=== PATIENT | female | born 1930 | race African-American/Black ===

== ENCOUNTER 2017-07-15 01:39 | Inpatient (IN) | payer MEDICARE, MEDICAID ==
[~2017-07-15] VITALS: Ht 157.5 cm; Wt 60.8 kg
[2017-07-15] VITALS (46 sets, daily range): BP systolic 101–189; BP diastolic 51–103
[~2017-07-15 01:39] MED LIST: APIX2.5T PO; ATOR40TA70 PO; AZOPT EACHEYE; BRIM5DRO EACHEYE; BUSP5TAB3 PO; ESCI20TA36 PO; FLUT1DIS3 INH; KDUR10 PO; LOSA25TA12 PO; PALI6TAB3 PO; TRAV2.5D EACHEYE; VERA180T PO
[2017-07-15] MEDS ORDERED: ALBUTEROL (0.083%) 2.5MG/3ML NEB HHN STA (01:48)
[2017-07-15] MEDS ORDERED: IPRATROPIUM BROMIDE (0.02%) 0.5MG/2.5ML NEB HHN STA (01:48)
[2017-07-15] MEDS ORDERED: METHYLPREDNISOLONE SOD SUCC 125 MG/2 ML VIAL IV STA (01:48)
[2017-07-15] MEDS ORDERED: MAGNESIUM 2 G PREMIX 50 ML IV ONE (02:00)
[2017-07-15] MEDS ORDERED: ASPIRIN 81MG TABLET PO ONE (02:00)
[2017-07-15] MEDS ORDERED: LEVOFLOXACIN 750MG PREMIX 150 ML IV ONE (02:00)
[2017-07-15 02:21] LABS: BASOPHILS % 0.4 % (0.0-2.0); EOSINOPHILS % 1.3 % (0.0-5.0); HEMATOCRIT. 37.3 % (36.0-48.0); HEMOGLOBIN. 11.9 g/dL (12.0-16.0); LYMPHOCYTES % 24.6 % (20.0-50.0); MEAN CORPUSCULAR HEMOGLOBIN 28.9 pg (28.0-32.0); MEAN CORPUSCULAR VOLUME 90.6 fL (81.0-99.0); MONOCYTES % 4.8 % (2.0-8.0); NEUTROPHILS % 68.9 % (40.0-76.0); PLATELET 177 x1000/uL (130-400); RED BLOOD CELL COUNT 4.12 mill/uL (4.2-5.4); RED CELL DISTRIBUTION WIDTH 15.1 % (11.6-14.6)
[2017-07-15 02:23] LABS: CHLORIDE 103 mEq/L (98-107); INR 1.1; PROTHROMBIN TIME 11.2 sec (9.4-11.6)
[2017-07-15 02:27] LABS: ETHANOL BLOOD < 10 mg/dL
[2017-07-15 02:39] LABS: BG BASE EXCESS 0.5 mmol/L (-2.0-2.0); BG CARBOXYHEMOGLOBIN 0.2 % (0.5-1.5); BG DEOXYHEMOGLOBIN 8.2 % (0.0-5.0); BG FRACTION INSPIRED OXYGEN 100; BG HCO3 ACT 25.9 mmol/L (22.0-26.0); BG METHEMOGLOBIN 0.1 % (0.0-1.5); BG OXYGEN SATURATION 91.8 % (92.0-98.5); BG OXYHEMOGLOBIN 91.5 % (94.0-97.0); BG PCO2 44.7 mmHg (35.0-45.0); BG PH 7.381 (7.350-7.450); BG SAMPLE SITE RIGHT RADIAL; BG TOTAL HEMOGLOBIN 12.2 g/dL (12.0-18.0); BG VENT MODE MASK - NRB
[2017-07-15] MEDS ORDERED: VANCOMYCIN 1 G PREMIX 200 ML IV SCH (08:00)
[2017-07-15] MEDS ORDERED: PANTOPRAZOLE SODIUM 40 MG/VIAL IV SCH (09:00)
[2017-07-15] MEDS ORDERED: ONDANSETRON HCL 4MG/2ML VIAL IV PRN (10:00)
[2017-07-15] MEDS ORDERED: LIDOCAINE HCL/PF 1% 10 MG/ML 5ML VIAL ONE (10:23)
[2017-07-15] MEDS ORDERED: LORAZEPAM 2MG/ML CPJ IV PRN (10:45)
[2017-07-15] MEDS ORDERED: LORAZEPAM 2MG/ML CPJ IV SCH (10:45)
[2017-07-15] MEDS ORDERED: NOREPINEPHRINE 4 MG in DEXT 5% WATER 246 ML IV PRN (11:15)
[2017-07-15] MEDS: PIPERACILLIN/TAZ 3.375G PREMIX 50 ML IV SCH ×3 (11:16→22:13)
[2017-07-15] MEDS: DEXT 5%/0.45% NACL KCL 20MEQ/L 1,000 ML IV SCH ×2 (11:31→21:48)
[2017-07-15] MEDS ORDERED: VANCOMYCIN 1500MG in DEXTROSE 5% WATER 250ML IV SCH (12:00)
[2017-07-15] MEDS ORDERED: METOPROLOL TARTRATE 5MG/5ML VIAL IV PRN (12:45)
[2017-07-15 13:10] LABS: HEMATOCRIT. 31.4 % (36.0-48.0); HEMOGLOBIN. 10.4 g/dL (12.0-16.0); MEAN CORPUSCULAR VOLUME 90.8 fL (81.0-99.0); MEAN PLATELET VOLUME 11.5 fl (7.4-10.4); PLATELET 153 x1000/uL (130-400); RED BLOOD CELL COUNT 3.46 mill/uL (4.2-5.4); RED CELL DISTRIBUTION WIDTH 15.2 % (11.6-14.6)
[2017-07-15 13:36] LABS: PLATELET ESTIMATE NORMAL
[2017-07-15] MEDS: DORZOLAMIDE 2% OPHTH 10 ML BOTTLE BOTHEYE SCH ×2 (14:52→23:00)
[2017-07-15 16:16] LABS: TOTAL IRON BINDING CAPACITY 254 ug/dL (250-450)
[2017-07-15] MEDS: PANTOPRAZOLE 80 MG in SODIUM CHLORIDE 0.9% 100 ML IV SCH (17:11)
[2017-07-15] MEDS: DIGOXIN 500MCG/2ML AMP IV SCH (17:12)
[2017-07-15] MEDS ORDERED: CLONIDINE HCL 0.1MG/24HR PATCH TD SCH (18:45)
[2017-07-15 19:41] LABS: HEMATOCRIT. 26.8 % (36.0-48.0); HEMOGLOBIN. 8.7 g/dL (12.0-16.0); MEAN CORPUSCULAR HEMOGLOBIN 29.1 pg (28.0-32.0); MEAN CORPUSCULAR VOLUME 89.9 fL (81.0-99.0); MEAN PLATELET VOLUME 11.6 fl (7.4-10.4); PLATELET 144 x1000/uL (130-400); RED BLOOD CELL COUNT 2.98 mill/uL (4.2-5.4); RED CELL DISTRIBUTION WIDTH 14.9 % (11.6-14.6)
[2017-07-15 21:20] LABS: PLATELET ESTIMATE NORMAL
[2017-07-16] VITALS (33 sets, daily range): BP systolic 114–177; BP diastolic 51–120
[2017-07-16 00:45] LABS: BASOPHILS % 0.1 % (0.0-2.0); HEMATOCRIT. 28.9 % (36.0-48.0); HEMOGLOBIN. 9.6 g/dL (12.0-16.0); LYMPHOCYTES % 9.2 % (20.0-50.0); MEAN CORPUSCULAR HEMOGLOBIN 30.1 pg (28.0-32.0); MEAN CORPUSCULAR VOLUME 90.1 fL (81.0-99.0); MEAN PLATELET VOLUME 11.1 fl (7.4-10.4); MONOCYTES % 8.1 % (2.0-8.0); NEUTROPHILS % 82.6 % (40.0-76.0); PLATELET 122 x1000/uL (130-400); RED CELL DISTRIBUTION WIDTH 14.9 % (11.6-14.6)
[2017-07-16] MEDS: PANTOPRAZOLE 80 MG in SODIUM CHLORIDE 0.9% 100 ML IV SCH ×3 (02:00→21:25)
[2017-07-16] MEDS: PIPERACILLIN/TAZ 3.375G PREMIX 50 ML IV SCH ×4 (04:45→21:24)
[2017-07-16] MEDS: DEXT 5%/0.45% NACL KCL 20MEQ/L 1,000 ML IV SCH ×2 (06:10→18:19)
[2017-07-16 07:01] LABS: BASOPHILS % 0.1 % (0.0-2.0); HEMATOCRIT. 27.5 % (36.0-48.0); HEMOGLOBIN. 9.1 g/dL (12.0-16.0); LYMPHOCYTES % 8.3 % (20.0-50.0); MEAN CORPUSCULAR HEMOGLOBIN 29.9 pg (28.0-32.0); MEAN CORPUSCULAR VOLUME 90.6 fL (81.0-99.0); MEAN PLATELET VOLUME 11.4 fl (7.4-10.4); MONOCYTES % 7.9 % (2.0-8.0); NEUTROPHILS % 83.7 % (40.0-76.0); PLATELET 125 x1000/uL (130-400); RED BLOOD CELL COUNT 3.03 mill/uL (4.2-5.4); RED CELL DISTRIBUTION WIDTH 14.7 % (11.6-14.6)
[2017-07-16 07:43] LABS: BG BASE EXCESS -0.7 mmol/L (-2.0-2.0); BG CARBOXYHEMOGLOBIN 0.2 % (0.5-1.5); BG DEOXYHEMOGLOBIN 0.5 % (0.0-5.0); BG HCO3 ACT 23.2 mmol/L (22.0-26.0); BG METHEMOGLOBIN 0.5 % (0.0-1.5); BG OXYGEN SATURATION 99.5 % (92.0-98.5); BG OXYHEMOGLOBIN 98.8 % (94.0-97.0); BG PCO2 34.8 mmHg (35.0-45.0); BG PH 7.441 (7.350-7.450); BG PO2 320.6 mmHg (75.0-100.0); BG SAMPLE SITE RIGHT BRACHIAL; BG TOTAL HEMOGLOBIN 8.5 g/dL (12.0-18.0); BG VENT MODE MASK - NRB
[2017-07-16 07:48] LABS: CHLORIDE 107 mEq/L (98-107)
[2017-07-16 07:53] LABS: PHOSPHORUS 1.9 mg/dL (2.5-4.9)
[2017-07-16] MEDS: DORZOLAMIDE 2% OPHTH 10 ML BOTTLE BOTHEYE SCH ×2 (09:31→21:51)
[2017-07-16 10:15] LABS: CLARITY URINE CLEAR (CLEAR); COLOR URINE ORANGE (YELLOW); KETONES URINE NEGATIVE (NEGATIVE); LEUKOCYTE ESTERASE URINE 1+ (NEGATIVE); NITRITE URINE NEGATIVE (NEGATIVE); OCCULT BLOOD URINE 3+ (NEGATIVE); PROTEIN URINE 1+ (NEGATIVE); SPECIFIC GRAVITY URINE 1.022 (1.005-1.030); UROBILINOGEN URINE 0.2 E.U./dL (0.2-1.0)
[2017-07-16] MEDS: LOSARTAN POTASSIUM 25 MG TABLET NG SCH (11:40)
[2017-07-16] MEDS: AMIODARONE HCL 200 MG TABLET NG SCH ×2 (11:40→21:25)
[2017-07-16] MEDS: HYDRALAZINE HCL 25MG TABLET NG SCH ×2 (11:40→21:25)
[2017-07-16] MEDS: LAMOTRIGINE 100MG TABLET PO SCH ×2 (11:40→21:25)
[2017-07-16 12:32] LABS: BASOPHILS % 0.3 % (0.0-2.0); EOSINOPHILS % 0.3 % (0.0-5.0); HEMATOCRIT. 23.9 % (36.0-48.0); HEMOGLOBIN. 7.8 g/dL (12.0-16.0); LYMPHOCYTES % 10.1 % (20.0-50.0); MEAN CORPUSCULAR HEMOGLOBIN 29.3 pg (28.0-32.0); MEAN CORPUSCULAR VOLUME 89.3 fL (81.0-99.0); MEAN PLATELET VOLUME 11.6 fl (7.4-10.4); MONOCYTES % 7.7 % (2.0-8.0); NEUTROPHILS % 81.6 % (40.0-76.0); PLATELET 126 x1000/uL (130-400); RED BLOOD CELL COUNT 2.68 mill/uL (4.2-5.4); RED CELL DISTRIBUTION WIDTH 15.1 % (11.6-14.6)
[2017-07-16 12:38] LABS: BG CARBOXYHEMOGLOBIN 0.2 % (0.5-1.5); BG DEOXYHEMOGLOBIN 2.2 % (0.0-5.0); BG FRACTION INSPIRED OXYGEN 32; BG HCO3 ACT 25.8 mmol/L (22.0-26.0); BG OXYGEN SATURATION 97.8 % (92.0-98.5); BG OXYHEMOGLOBIN 95.6 % (94.0-97.0); BG PCO2 36.7 mmHg (35.0-45.0); BG PH 7.464 (7.350-7.450); BG PO2 147.5 mmHg (75.0-100.0); BG SAMPLE SITE RIGHT RADIAL; BG TOTAL HEMOGLOBIN 9.3 g/dL (12.0-18.0); BG VENT MODE NASAL CANNULA
[2017-07-16] MEDS: VANCOMYCIN 1250MG in DEXTROSE 5% WATER 250ML IV SCH (12:39)
[2017-07-16 13:11] LABS: *AMPHETAMINES SCREEN URINE NEGATIVE (NEGATIVE); *BARBITURATES SCREEN URINE NEGATIVE (NEGATIVE); *BENZODIAZEPINES SCREEN URINE NEGATIVE (NEGATIVE); METHADONE URINE SCREEN NEGATIVE (NEGATIVE); OPIATES URINE SCREEN NEGATIVE (NEGATIVE)
[2017-07-16 13:12] LABS: CANNABINOID URINE SCREEN NEGATIVE (NEGATIVE); PHENCYCLIDINE URINE SCREEN NEGATIVE (NEGATIVE)
[2017-07-16 13:13] LABS: *COCAINE SCREEN URINE NEGATIVE (NEGATIVE)
[2017-07-16] MEDS: SUCRALFATE 1 G/10 ML UDC GT SCH ×2 (14:55→21:25)
[2017-07-16] MEDS ORDERED: POTASSIUM PHOS,M-BASIC-D-BASIC 30 MMOL in DEXT 5% WATER 500 ML IV NR (16:00)
[2017-07-16] MEDS: DIGOXIN 500MCG/2ML AMP IV SCH (18:24)
[2017-07-16] MEDS ORDERED: PANTOPRAZOLE SODIUM 40 MG/VIAL IV ONE (21:17)
[2017-07-17] VITALS (61 sets, daily range): BP systolic 97–169; BP diastolic 41–86
[2017-07-17] MEDS: DEXT 5%/0.45% NACL KCL 20MEQ/L 1,000 ML IV SCH ×2 (04:38→11:59)
[2017-07-17] MEDS: PIPERACILLIN/TAZ 3.375G PREMIX 50 ML IV SCH ×4 (04:43→21:40)
[2017-07-17 05:26] LABS: BASOPHILS % 0.1 % (0.0-2.0); EOSINOPHILS % 0.7 % (0.0-5.0); HEMATOCRIT. 22.3 % (36.0-48.0); HEMOGLOBIN. 7.5 g/dL (12.0-16.0); LYMPHOCYTES % 17.1 % (20.0-50.0); MEAN CORPUSCULAR HEMOGLOBIN 30.3 pg (28.0-32.0); MEAN CORPUSCULAR VOLUME 89.6 fL (81.0-99.0); MEAN PLATELET VOLUME 11.2 fl (7.4-10.4); MONOCYTES % 7.4 % (2.0-8.0); NEUTROPHILS % 74.7 % (40.0-76.0); PLATELET 112 x1000/uL (130-400); RED BLOOD CELL COUNT 2.49 mill/uL (4.2-5.4); RED CELL DISTRIBUTION WIDTH 15.2 % (11.6-14.6)
[2017-07-17 05:44] LABS: CHLORIDE 113 mEq/L (98-107)
[2017-07-17 05:49] LABS: PHOSPHORUS 2.2 mg/dL (2.5-4.9)
[2017-07-17] MEDS: SUCRALFATE 1 G/10 ML UDC GT SCH ×2 (06:28→14:00)
[2017-07-17] MEDS: HYDRALAZINE HCL 25MG TABLET NG SCH ×2 (09:00→21:41)
[2017-07-17] MEDS: PANTOPRAZOLE 80 MG in SODIUM CHLORIDE 0.9% 100 ML IV SCH (09:23)
[2017-07-17] MEDS: LAMOTRIGINE 100MG TABLET PO SCH ×2 (09:31→21:40)
[2017-07-17] MEDS: LOSARTAN POTASSIUM 25 MG TABLET NG SCH (09:31)
[2017-07-17] MEDS: AMIODARONE HCL 200 MG TABLET NG SCH ×2 (09:32→21:40)
[2017-07-17] MEDS: DORZOLAMIDE 2% OPHTH 10 ML BOTTLE BOTHEYE SCH ×2 (10:19→21:55)
[2017-07-17] MEDS ORDERED: PANTOPRAZOLE SODIUM 40 MG/VIAL IV SCH ×2 (11:00→21:00)
[2017-07-17] MEDS ORDERED: SODIUM CHLORIDE 0.9% 10ML VIAL ONE (12:03)
[2017-07-17] MEDS: VANCOMYCIN 1250MG in DEXTROSE 5% WATER 250ML IV SCH (12:30)
[2017-07-17] MEDS ORDERED: POTASSIUM PHOS,M-BASIC-D-BASIC 30 MMOL in SODIUM CHLORIDE 0.9% 500 ML IV SCH (13:00)
[2017-07-17 13:34] LABS: HEMATOCRIT 24.3 % (36.0-48.0); HEMOGLOBIN 8.3 g/dL (12.0-16.0)
[2017-07-17 13:38] LABS: PARTIAL THROMBOPLASTIN TIME 24.8 sec (23.4-31.0); PROTHROMBIN TIME 10.7 sec (9.4-11.6)
[2017-07-17] MEDS ORDERED: FENTANYL CITRATE/PF 50MCG/ML 2ML VIAL ONE (16:16)
[2017-07-17] MEDS ORDERED: MIDAZOLAM HCL 5 MG/5 ML VIAL ONE (16:16)
[2017-07-17] MEDS ORDERED: SIMETHICONE 40 MG/0.6 ML 30ML ONE (16:17)
[2017-07-17] MEDS ORDERED: MIDAZOLAM HCL 5 MG/5 ML VIAL IV PRN (16:50)
[2017-07-17] MEDS: DIGOXIN 500MCG/2ML AMP IV SCH (18:06)
[2017-07-17] MEDS ORDERED: DEXT 5%/0.45% NACL KCL 20MEQ/L 1,000 ML IV SCH (19:30)
[2017-07-17 20:30] LABS: HEMATOCRIT 24.8 % (36.0-48.0); HEMOGLOBIN 8.3 g/dL (12.0-16.0)
[2017-07-18] VITALS (50 sets, daily range): BP systolic 108–157; BP diastolic 48–110
[2017-07-18 01:10] LABS: HEMATOCRIT 24.3 % (36.0-48.0); HEMOGLOBIN 8.1 g/dL (12.0-16.0)
[2017-07-18] MEDS: PIPERACILLIN/TAZ 3.375G PREMIX 50 ML IV SCH ×2 (05:54→09:03)
[2017-07-18 06:01] LABS: BASOPHILS % 0.1 % (0.0-2.0); EOSINOPHILS % 2.1 % (0.0-5.0); HEMATOCRIT. 25.3 % (36.0-48.0); HEMOGLOBIN. 8.6 g/dL (12.0-16.0); LYMPHOCYTES % 17.2 % (20.0-50.0); MEAN CORPUSCULAR HEMOGLOBIN 30.5 pg (28.0-32.0); MEAN CORPUSCULAR VOLUME 89.9 fL (81.0-99.0); MEAN PLATELET VOLUME 11.3 fl (7.4-10.4); MONOCYTES % 7.9 % (2.0-8.0); NEUTROPHILS % 72.7 % (40.0-76.0); PLATELET 123 x1000/uL (130-400); RED BLOOD CELL COUNT 2.81 mill/uL (4.2-5.4); RED CELL DISTRIBUTION WIDTH 15.5 % (11.6-14.6)
[2017-07-18 06:16] LABS: CHLORIDE 111 mEq/L (98-107)
[2017-07-18] MEDS ORDERED: OMEPRAZOLE 20MG CAPSULE EXTENDED RELEASE PO SCH (06:30)
[2017-07-18] MEDS ORDERED: LANSOPRAZOLE 30MG DR CAPSULE JT SCH (08:00)
[2017-07-18 08:30] LABS: PHOSPHORUS 2.8 mg/dL (2.5-4.9)
[2017-07-18] MEDS: DORZOLAMIDE 2% OPHTH 10 ML BOTTLE BOTHEYE SCH (09:01)
[2017-07-18] MEDS: AMIODARONE HCL 200 MG TABLET NG SCH (09:02)
[2017-07-18] MEDS: LAMOTRIGINE 100MG TABLET PO SCH (09:02)
[2017-07-18] MEDS: HYDRALAZINE HCL 25MG TABLET NG SCH (09:02)
[2017-07-18] MEDS: LOSARTAN POTASSIUM 25 MG TABLET NG SCH (09:02)
[2017-07-18] MEDS ORDERED: DIGOXIN 500MCG/2ML AMP IV NR (10:45)
[2017-07-18] MEDS ORDERED: DIGOXIN 125MCG TABLET PO ONE (10:45)
[2017-07-18] MEDS ORDERED: ACETAMINOPHEN 650MG/20.3ML UDC PO PRN (14:15)
[2017-07-18] MEDS ORDERED: PIPERACILLIN/TAZ 3.375G PREMIX 50 ML IV SCH (18:00)
[2017-07-18] MEDS ORDERED: DIGOXIN 125MCG TABLET PEG SCH (18:00)
[2017-07-18] MEDS ORDERED: ATORVASTATIN CALCIUM 40MG TABLET PEG SCH (21:00)
[2017-07-18] MEDS ORDERED: MEMANTINE HCL 5MG TABLET PEG SCH (21:00)
== END 2017-07-18 17:34 | DRG 377 ==
LOC: ER 01:39 → EDBEDREQ 02:58 → 6WST 02:59 → EDBEDREQ 03:00 → EDBEDREQTM 03:00 → ENRESERV 03:13 → MICUNO 09:39
PROVIDERS: ADMIT Internal Medicine Pulmonary Disease; ATTEND Internal Medicine Pulmonary Disease
PROC: 02HV33Z Insertion of Infusion Device into Superior Vena Cava, Percutaneous Approach (ICD-10-PCS; 2017-07-15)
PROC: B548ZZA Ultrasonography of Superior Vena Cava, Guidance (ICD-10-PCS; 2017-07-15)
PROC: 0DJ08ZZ Inspection of Upper Intestinal Tract, Via Natural or Artificial Opening Endoscopic (ICD-10-PCS; principal; 2017-07-17 15:30)
DX: K29.01 Acute gastritis with bleeding (principal); J96.91 Respiratory failure, unspecified with hypoxia; J18.9 Pneumonia, unspecified organism; E87.2 Acidosis; I11.0 Hypertensive heart disease with heart failure; E44.1 Mild protein-calorie malnutrition; I48.0 Paroxysmal atrial fibrillation; I49.5 Sick sinus syndrome; I50.22 Chronic systolic (congestive) heart failure; R13.10 Dysphagia, unspecified; I69.351 Hemiplegia and hemiparesis following cerebral infarction affecting right dominant side; G40.909 Epilepsy, unspecified, not intractable, without status epilepticus; D64.9 Anemia, unspecified; F03.90 Unspecified dementia, unspecified severity, without behavioral disturbance, psychotic disturbance, mood disturbance, and anxiety; H40.9 Unspecified glaucoma; E78.5 Hyperlipidemia, unspecified; I25.10 Atherosclerotic heart disease of native coronary artery without angina pectoris; Z96.1 Presence of intraocular lens; Z95.0 Presence of cardiac pacemaker; Z93.1 Gastrostomy status; Z98.41 Cataract extraction status, right eye; Z98.42 Cataract extraction status, left eye; Z79.899 Other long term (current) drug therapy; Z90.49 Acquired absence of other specified parts of digestive tract; Z98.51 Tubal ligation status; Z88.6 Allergy status to analgesic agent
CPT/HCPCS: 36415; 36569; 36600; 71045; 76937; 80048; 80053; 80202; 80305; 81003; 82270; 82375; 82805; 83540; 83550; 83605; 83690; 83735; 83880; 84100; 84484; 85014; 85018; 85025; 85610; 85730; 86850; 86900; 87040; 87086; 93005; 94640; A4216; C1725; C9113; G0482; J1160; J1956; J2060; J2250; J2543; J2930; J3010; J3370; J3475; J3490; J7040; J7050; J7060; J7611; A4315

== ENCOUNTER 2019-09-24 21:20 | Inpatient (IN) | payer MEDICARE, MEDICAID ==
[~2019-09-24] VITALS: Ht 152.4 cm; Wt 54.4 kg
[~2019-09-24 21:20] MED LIST changes: -APIX2.5T PO; -ESCI20TA36 PO; +ESCI20TA43 PO; -LOSA25TA12 PO; +LOSA25TA26 PO
[2019-09-25] MEDS ORDERED: ONDANSETRON HCL 4MG/2ML INJ IV STA (00:23)
[2019-09-25] MEDS ORDERED: SODIUM CHLORIDE 0.9% 1,000 ML IV ONE (00:23)
[2019-09-25 00:52] LABS: BASOPHILS % 0.5 % (0.0-2.0); EOSINOPHILS % 1.6 % (0.0-5.0); HEMOGLOBIN. 13.7 g/dL (12.0-16.0); LYMPHOCYTES % 22.1 % (20.0-50.0); MEAN CORPUSCULAR HEMOGLOBIN 32.7 pg (28.0-32.0); MEAN CORPUSCULAR VOLUME 95.7 fL (81.0-99.0); MEAN PLATELET VOLUME 10.6 fl (7.4-10.4); MONOCYTES % 8.8 % (2.0-8.0); PLATELET 129 x1000/uL (130-400); RED BLOOD CELL COUNT 4.18 mill/uL (4.2-5.4); RED CELL DISTRIBUTION WIDTH 17.1 % (11.6-14.6)
[2019-09-25 00:54] LABS: CHLORIDE 111 mEq/L (98-107)
[2019-09-25 00:58] LABS: INR 1.1; PROTHROMBIN TIME 11.1 sec (9.6-11.0)
[2019-09-25] MEDS ORDERED: IPRATROPIUM/ALBUTEROL 0.5-3(2.5)MG/3ML NEB HHN PRN (02:15)
[2019-09-25] MEDS ORDERED: DEXT 5%/0.45% NACL KCL 20MEQ/L 1,000 ML IV NR (03:00)
[2019-09-25 03:30] VITALS: BP_SYST 120; BP_SYST 140; BP_DIAS 65
[2019-09-25 04:00] VITALS: BP 140/65
[2019-09-25] MEDS: VERAPAMIL HCL 120MG TABLET PO SCH ×3 (05:10→21:06)
[2019-09-25 08:00] VITALS: BP 149/70
[2019-09-25] MEDS ORDERED: ENOXAPARIN 40MG/0.4ML SYR SUBCUT SCH (09:00)
[2019-09-25] MEDS: LOSARTAN POTASSIUM 25 MG TABLET PO SCH (09:00)
[2019-09-25] MEDS: BUSPIRONE HCL 5MG TABLET PO SCH ×2 (09:00→17:00)
[2019-09-25] MEDS: POTASSIUM CHLORIDE 20MEQ TABLET SR PO SCH (09:00)
[2019-09-25 12:00] VITALS: BP 141/69
[2019-09-25 16:00] VITALS: BP 117/81
[2019-09-25 20:00] VITALS: BP 144/75
[2019-09-25] MEDS: ATORVASTATIN CALCIUM 40MG TABLET PO SCH (20:46)
[2019-09-25] MEDS: PANTOPRAZOLE SODIUM 40 MG/VIAL IV SCH (20:47)
[2019-09-26] VITALS: BP 124/66
[2019-09-26 04:00] VITALS: BP 129/78
[2019-09-26] MEDS: VERAPAMIL HCL 120MG TABLET PO SCH ×3 (06:00→21:15)
[2019-09-26 08:00] VITALS: BP 123/81
[2019-09-26] MEDS ORDERED: METRONIDAZOLE 500 MG PREMIX 100 ML IV NR (08:00)
[2019-09-26] MEDS ORDERED: LEVOFLOXACIN 500MG PREMIX 100 ML IV NR (08:00)
[2019-09-26] MEDS: LOSARTAN POTASSIUM 25 MG TABLET PO SCH (08:01)
[2019-09-26] MEDS: BUSPIRONE HCL 5MG TABLET PO SCH ×2 (08:01→17:32)
[2019-09-26] MEDS: POTASSIUM CHLORIDE 20MEQ TABLET SR PO SCH (08:01)
[2019-09-26] MEDS: PANTOPRAZOLE SODIUM 40 MG/VIAL IV SCH (08:01)
[2019-09-26] MEDS ORDERED: DEXT 5%/0.45% NACL 1000ML 1,000 ML IV SCH (08:45)
[2019-09-26 10:26] LABS: BASOPHILS % 0.6 % (0.0-2.0); EOSINOPHILS % 1.2 % (0.0-5.0); HEMATOCRIT. 37.7 % (36.0-48.0); HEMOGLOBIN. 13.1 g/dL (12.0-16.0); LYMPHOCYTES % 17.1 % (20.0-50.0); MEAN CORPUSCULAR HEMOGLOBIN 33.1 pg (28.0-32.0); MEAN CORPUSCULAR VOLUME 95.3 fL (81.0-99.0); MEAN PLATELET VOLUME 10.3 fl (7.4-10.4); MONOCYTES % 6.5 % (2.0-8.0); NEUTROPHILS % 74.6 % (40.0-76.0); PLATELET 132 x1000/uL (130-400); RED BLOOD CELL COUNT 3.96 mill/uL (4.2-5.4); RED CELL DISTRIBUTION WIDTH 16.7 % (11.6-14.6)
[2019-09-26 10:37] LABS: INR 1.1; PARTIAL THROMBOPLASTIN TIME 30.7 sec (23.4-31.0); PROTHROMBIN TIME 11.5 sec (9.6-11.0)
[2019-09-26 10:40] LABS: CHLORIDE 112 mEq/L (98-107)
[2019-09-26] MEDS ORDERED: MIDAZOLAM HCL 5 MG/5 ML VIAL IV PRN (13:02)
[2019-09-26] MEDS ORDERED: MIDAZOLAM HCL 5 MG/5 ML VIAL ONE ×2 (13:02→13:23)
[2019-09-26] MEDS ORDERED: FENTANYL CITRATE/PF 50MCG/ML 2ML VIAL IV PRN (13:06)
[2019-09-26] MEDS ORDERED: FENTANYL CITRATE/PF 50MCG/ML 2ML VIAL ONE (13:06)
[2019-09-26 16:00] VITALS: BP 155/84
[2019-09-26 18:17] VITALS: BP 155/80
[2019-09-26 20:00] VITALS: BP 155/82
[2019-09-26] MEDS: ATORVASTATIN CALCIUM 40MG TABLET PO SCH (21:15)
== END 2019-09-26 23:40 | DRG 394 ==
LOC: ER 21:20 → 7WST 09-25 01:25 → ENRESERV 09-25 02:01
PROVIDERS: ADMIT Ophthalmology; ATTEND Ophthalmology
PROC: 0D20XUZ Change Feeding Device in Upper Intestinal Tract, External Approach (ICD-10-PCS; principal; 2019-09-26)
PROC: 0DB68ZX Excision of Stomach, Via Natural or Artificial Opening Endoscopic, Diagnostic (ICD-10-PCS; 2019-09-26)
DX: K94.23 Gastrostomy malfunction (principal); I69.351 Hemiplegia and hemiparesis following cerebral infarction affecting right dominant side; I50.22 Chronic systolic (congestive) heart failure; E44.1 Mild protein-calorie malnutrition; R47.01 Aphasia; G40.909 Epilepsy, unspecified, not intractable, without status epilepticus; I11.0 Hypertensive heart disease with heart failure; F03.90 Unspecified dementia, unspecified severity, without behavioral disturbance, psychotic disturbance, mood disturbance, and anxiety; I25.10 Atherosclerotic heart disease of native coronary artery without angina pectoris; I48.0 Paroxysmal atrial fibrillation; E78.5 Hyperlipidemia, unspecified; K21.9 Gastro-esophageal reflux disease without esophagitis; Y83.3 Surgical operation with formation of external stoma as the cause of abnormal reaction of the patient, or of later complication, without mention of misadventure at the time of the procedure; I69.398 Other sequelae of cerebral infarction; I69.391 Dysphagia following cerebral infarction; Z90.710 Acquired absence of both cervix and uterus; Z95.0 Presence of cardiac pacemaker; Z88.1 Allergy status to other antibiotic agents; Z88.5 Allergy status to narcotic agent; Z88.8 Allergy status to other drugs, medicaments and biological substances; Z68.23 Body mass index [BMI] 23.0-23.9, adult; Z79.899 Other long term (current) drug therapy; Y92.128 Other place in nursing home as the place of occurrence of the external cause
CPT/HCPCS: 36415; 71045; 80048; 80053; 85025; 88305; 88312; 88313; 96374; 99152; 99285; C9113; J1956; J2250; J2405; J3010; J3490; J7030; G0500